=== PATIENT | female | born 1940 | race Caucasian/White ===

== ENCOUNTER 2024-05-06 13:58 | Inpatient (IN) | payer MEDICARE, OTHER ==
[~2024-05-06] VITALS: Ht 152.4 cm; Wt 62.2 kg
[2024-05-06] MEDS ORDERED: DIOVAN (14:13)
[2024-05-06] MEDS ORDERED: MOBIC (14:13)
[2024-05-06] MEDS ORDERED: ASA (14:13)
[2024-05-06] MEDS ORDERED: NEURONTIN (14:13)
[2024-05-06] MEDS ORDERED: LEXAPRO (14:13)
[2024-05-06] MEDS ORDERED: LIPITOR (14:13)
[2024-05-06] MEDS ORDERED: COREG (14:13)
[2024-05-06] MEDS: IV NORMAL SALINE 1000 ML BAG IV ONE (15:00)
[2024-05-06 16:09] LABS: CALCIUM 8.5 mg/dL (8.5-10.1); CARBON DIOXIDE 26 mmol/L (21-32); CHLORIDE 102 mmol/L (98-107); CREATININE 2.4 mg/dL (0.6-1.3); GLUCOSE 199 mg/dL (74-106); POTASSIUM 3.7 mmol/L (3.5-5.1); SODIUM SERUM 141 mmol/L (136-145); UREA NITROGEN, BLOOD 32 mg/dL (7-18)
[2024-05-06 16:10] LABS: MAGNESIUM 1.3 mg/dL (1.8-2.4)
[2024-05-06 16:17] LABS: HEMATOCRIT 34.9 % (31.2-41.9); HEMOGLOBIN 11.6 g/dL (10.9-14.3); LYMPHOCYTES # (AUTO) 0.3 K/uL (0.8-4.8); LYMPHOCYTES % (AUTO) 1.7 % (20.5-51.5); MEAN CORPUSCULAR HEMOGLOBIN 28.8 uug (24.7-32.8); MEAN CORPUSCULAR HGB CONC 33 g/dL (32.3-35.6); MEAN CORPUSCULAR VOLUME 86.4 fL (75.5-95.3); MONOCYTES # (AUTO) 0.8 K/uL (0.1-1.30); MONOCYTES % (AUTO) 4.2 % (0.0-11.0); NEUTROPHILS % (AUTO) 94.1 % (38.5-71.5); PLATELET COUNT (AUTO) 129 K/uL (179-408); RED BLOOD CELL COUNT(AUTO) 4.03 MIL/uL (3.63-4.92); RED CELL DISTRIBUTION WIDTH 13.7 % (12.3-17.7); WHITE BLOOD COUNT (AUTO) 20.2 K/uL (3.8-11.8)
[2024-05-06 16:18] LABS: ALANINE AMINOTRANSFERASE 21 U/L (14-59); ALBUMIN 2.8 g/dL (3.4-5.0); ALKALINE PHOSPHATASE 57 U/L (50-136); ASPARTATE AMINOTRANSFERASE 18 U/L (15-37); BILIRUBIN,DIRECT 0.2 mg/dL (0.0-0.2); BILIRUBIN,TOTAL 0.8 mg/dL (0.2-1.0); TOTAL PROTEIN, SERUM 6.3 g/dL (6.4-8.2)
[2024-05-06 16:19] LABS: DIFFERENTIAL COMMENT 1
[2024-05-06] MEDS ORDERED: MAGNESIUM SULFATE 1 GM/2 ML VIAL ONE (16:53)
[2024-05-06] MEDS ORDERED: MAGNESIUM SULFATE/D5W 100 ML ONE ×2 (16:54→18:19)
[2024-05-06] MEDS: MAGNESIUM SULFATE/D5W 100 ML IV SCH (17:04)
[2024-05-06] MEDS: IV NS 1000 ML 1,000 ML IV ONE (18:12)
[2024-05-06] MEDS ORDERED: CEFTRIAXONE /D5W 50ML IVPB **ER PYXIS IV ONE (18:13)
[2024-05-06 18:15] LABS: *BILIRUBIN,URIN 1+ (NEGATIVE); *BLOOD, URINE 2+ (NEGATIVE); *CLARITY,URINE CLEAR (CLEAR); *COLOR,URINE YELLOW (YELLOW); *KETONES,URINE NEGATIVE (NEGATIVE); *PROTEIN,URINE 1+ (NEGATIVE); *UROBILINOGEN,URINE 0.2 E.U./dl (NORMAL); LEUKOCYTE ESTERASE ,URINE 1+ (NEGATIVE); NITRITE, URINE NEGATIVE (NEGATIVE); UGLUCOSE NEGATIVE (NEGATIVE)
[2024-05-06] MEDS: CEFTRIAXONE 1 G in IV DEXTROSE 5% 50 ML IV ONE (18:19)
[2024-05-06 18:55] LABS: BACTERIA,URINE MODERATE /HPF (NONE SEEN); SQUAMOUS EPITHELIAL CELL,UR MODERATE /HPF (NONE SEEN)
[2024-05-06] MEDS ORDERED: CEFD300C3 PO (19:06)
[2024-05-06] MEDS ORDERED: ACETAMINOPHEN 650 MG SUPP.RECT RC PRN (22:15)
[2024-05-06] MEDS ORDERED: MORPHINE SULFATE 2 MG/1 ML DISP.SYRIN IV PRN (22:15)
[2024-05-06] MEDS ORDERED: DEXTROSE 50% 50 ML DISP.SYRIN IV PRN (22:15)
[2024-05-06] MEDS ORDERED: ONDANSETRON 4 MG/2 ML VIAL IV PRN (22:15)
[2024-05-06] MEDS ORDERED: PIPERACILLIN/TAZO 2.25 GM VIAL ONE (23:40)
[2024-05-06] MEDS ORDERED: VANCOMYCIN HCL 500 MG VIAL ONE (23:41)
[2024-05-07] MEDS: BLOOD SUGAR DIAGNOSTIC 1 EACH STRIP VI SCH ×2 (00:07→16:38)
[2024-05-07] MEDS: PIPERACILLIN/TAZO 2.25 G in IV DEXTROSE 5% 50 ML IV SCH ×2 (00:08→12:17)
[2024-05-07] MEDS: INSULIN REGULAR, HUMAN 1000 UNIT/10 ML VIAL SQ PRN ×2 (00:30→16:41)
[2024-05-07] MEDS: VANCOMYCIN HCL 750 MG in IV DEXTROSE 5% 250 ML IV ONE (00:41)
[2024-05-07 06:24] LABS: ABG BASE EXCESS -0.6 mmol/L (-2.0-3.0); ABG HCO3 23.1 mmol/L (21.0-28.0); ABG PCO2 34.5 mmHg (32.0-45.0); ABG PH 7.443 (7.350-7.450); ABG PO2 69.1 mmHg (83.0-108.0); ABG SITE RIGHT RADIAL; AaDO2 94.6 mmHg; COHb 0.3 % (0.5-1.5); MetHb 0.3 % (0.0-1.5); O2Hb 93.6 % (94.0-98.0)
[2024-05-07 06:55] LABS: BASOPHILS % (AUTO) 0.3 % (0.0-2.0); HEMATOCRIT 30.9 % (31.2-41.9); HEMOGLOBIN 10.7 g/dL (10.9-14.3); LYMPHOCYTES # (AUTO) 0.8 K/uL (0.8-4.8); LYMPHOCYTES % (AUTO) 4.6 % (20.5-51.5); MEAN CORPUSCULAR HEMOGLOBIN 29.8 uug (24.7-32.8); MEAN CORPUSCULAR HGB CONC 35 g/dL (32.3-35.6); MEAN CORPUSCULAR VOLUME 85.8 fL (75.5-95.3); MONOCYTES # (AUTO) 0.5 K/uL (0.1-1.30); NEUTROPHILS # (AUTO) 15.4 K/uL (1.8-8.9); NEUTROPHILS % (AUTO) 92.1 % (38.5-71.5); PLATELET COUNT (AUTO) 112 K/uL (179-408); RED CELL DISTRIBUTION WIDTH 14.1 % (12.3-17.7); WHITE BLOOD COUNT (AUTO) 16.7 K/uL (3.8-11.8)
[2024-05-07 07:12] LABS: IRON, SERUM 5 ug/dL (50-175)
[2024-05-07 07:15] LABS: ALANINE AMINOTRANSFERASE 20 U/L (14-59); ALBUMIN 2.4 g/dL (3.4-5.0); ALKALINE PHOSPHATASE 68 U/L (50-136); ASPARTATE AMINOTRANSFERASE 21 U/L (15-37); BILIRUBIN,TOTAL 0.8 mg/dL (0.2-1.0); CALCIUM 7.5 mg/dL (8.5-10.1); CARBON DIOXIDE 26 mmol/L (21-32); CHLORIDE 100 mmol/L (98-107); CHOLESTEROL 117 mg/dL (<200); CREATININE 1.4 mg/dL (0.6-1.3); GLUCOSE 116 mg/dL (74-106); HDL CHOLESTEROL 60 mg/dL (40-60); MAGNESIUM 2.5 mg/dL (1.8-2.4); PHOSPHOROUS 2.9 mg/dL (2.5-4.9); SODIUM SERUM 134 mmol/L (136-145); TOTAL PROTEIN, SERUM 5.6 g/dL (6.4-8.2); TRIGLYCERIDES 84 MG/DL (30-150); UREA NITROGEN, BLOOD 28 mg/dL (7-18)
[2024-05-07 07:18] LABS: POTASSIUM 2.8 mmol/L (3.5-5.1)
[2024-05-07 07:51] LABS: DIFFERENTIAL COMMENT 1
[2024-05-07 07:56] VITALS: BP 123/43; TEMP 97.8; O2SAT 91
[2024-05-07] MEDS: PANTOPRAZOLE SODIUM 40 MG VIAL IV SCH (08:25)
[2024-05-07] MEDS: POTASSIUM CHLORIDE 50 ML IV SCH (08:30)
[2024-05-07 09:10] VITALS: O2SAT 97
[2024-05-07] MEDS: POTASSIUM CHLORIDE 20 MEQ in IV D5/ 0.9% NACL 1,000 ML IV PRN (09:36)
[2024-05-07] MEDS ORDERED: ATOR20TA PO (10:33)
[2024-05-07] MEDS ORDERED: POTA-10 PO (10:33)
[2024-05-07] MEDS ORDERED: DORZ10DR11 EACHEYE (10:33)
[2024-05-07] MEDS ORDERED: CARV6.252 PO (10:33)
[2024-05-07] MEDS ORDERED: ESCI5TAB PO (10:33)
[2024-05-07] MEDS ORDERED: AMLO-212 PO (10:33)
[2024-05-07] MEDS ORDERED: FAMO20TA8 PO (10:33)
[2024-05-07] MEDS ORDERED: BROM3DRO EACHEYE (10:33)
[2024-05-07] MEDS ORDERED: ICOS1CAP PO (10:33)
[2024-05-07] MEDS ORDERED: GABA-532 PO (10:33)
[2024-05-07] MEDS ORDERED: LINA1TAB PO (10:33)
[2024-05-07] MEDS ORDERED: ESTR0.5T PO (10:33)
[2024-05-07] MEDS ORDERED: DONE10TA44 PO (10:33)
[2024-05-07] MEDS ORDERED: MELO7.5T12 PO (10:36)
[2024-05-07] MEDS ORDERED: VALS1TAB7 PO (10:37)
[2024-05-07 10:41] LABS: THYROID STIMULATING HORMONE 0.964 mIU/mL (0.358-3.740)
[2024-05-07 12:00] VITALS: BP 129/50; TEMP 99.1; O2SAT 96
[2024-05-07] MEDS ORDERED: DEXTROSE 50% 50 ML DISP.SYRIN IV PRN (15:15)
[2024-05-07 16:04] VITALS: BP 90/45; TEMP 97.6; O2SAT 99
[2024-05-07] MEDS ORDERED: FAMOTIDINE 20 MG TABLET PO SCH (17:00)
[2024-05-07] MEDS ORDERED: Medication Not On Formulary EA (Icosapent Ethyl (Vascepa) 2 GM) PO SCH (17:00)
[2024-05-07] MEDS: ESCITALOPRAM OXALATE 10 MG TABLET PO SCH (17:20)
[2024-05-07] MEDS: DORZOLAMIDE/TIMOLOL OPHT DROP 10 ML BOTTLE EACHEYE SCH (17:20)
[2024-05-07] MEDS: ESTRADIOL 1 MG TABLET PO SCH (17:21)
[2024-05-07] MEDS: [UNRECOGNIZED DRUG - OTHER] PO SCH (17:22)
[2024-05-07] MEDS: [UNRECOGNIZED DRUG - OTHER] EACHEYE SCH (17:52)
[2024-05-07] MEDS: BROMFENAC EACHEYE SCH (17:52)
[2024-05-07] MEDS: SOD FERRIC GLUC COMPLX/SUCROSE 125 MG in IV NORMAL SALINE 100 ML IV SCH (18:13)
[2024-05-07 19:35] VITALS: BP 105/51; TEMP 98.8; O2SAT 92
[2024-05-07] MEDS: GABAPENTIN 100 MG CAPSULE PO SCH (20:38)
[2024-05-07] MEDS: ATORVASTATIN 20 MG TABLET PO SCH (20:38)
[2024-05-08] VITALS (8 sets, daily range): BP systolic 108–161; BP diastolic 49–60; TEMP 97.6–98.3; O2SAT 93–96
[2024-05-08 07:01] LABS: CALCIUM 7.5 mg/dL (8.5-10.1); CARBON DIOXIDE 24 mmol/L (21-32); CHLORIDE 109 mmol/L (98-107); GLUCOSE 153 mg/dL (74-106); MAGNESIUM 2.4 mg/dL (1.8-2.4); POTASSIUM 3.4 mmol/L (3.5-5.1); SODIUM SERUM 141 mmol/L (136-145); UREA NITROGEN, BLOOD 18 mg/dL (7-18)
[2024-05-08 07:02] LABS: BASOPHILS # (AUTO) 0.1 K/UL (0.0-0.2); BASOPHILS % (AUTO) 0.3 % (0.0-2.0); EOSINOPHILS # (AUTO) 0.1 K/uL (0.0-0.7); EOSINOPHILS % (AUTO) 0.6 % (0.0-7.0); HEMATOCRIT 30.4 % (31.2-41.9); HEMOGLOBIN 10.4 g/dL (10.9-14.3); LYMPHOCYTES # (AUTO) 0.9 K/uL (0.8-4.8); LYMPHOCYTES % (AUTO) 5.8 % (20.5-51.5); MEAN CORPUSCULAR HEMOGLOBIN 29.5 uug (24.7-32.8); MEAN CORPUSCULAR HGB CONC 34 g/dL (32.3-35.6); MEAN CORPUSCULAR VOLUME 86.3 fL (75.5-95.3); MONOCYTES # (AUTO) 0.7 K/uL (0.1-1.30); MONOCYTES % (AUTO) 4.2 % (0.0-11.0); NEUTROPHILS % (AUTO) 89.1 % (38.5-71.5); PLATELET COUNT (AUTO) 105 K/uL (179-408); RED BLOOD CELL COUNT(AUTO) 3.53 MIL/uL (3.63-4.92); WHITE BLOOD COUNT (AUTO) 15.7 K/uL (3.8-11.8)
[2024-05-08 07:12] LABS: DIFFERENTIAL COMMENT 1
[2024-05-08] MEDS: DONEPEZIL 10 MG TABLET PO SCH (08:58)
[2024-05-08] MEDS: POTASSIUM CHLORIDE 20 MEQ TAB.PRT.SR PO ONE (08:58)
[2024-05-08] MEDS ORDERED: Medication Not On Formulary EA (Escitalopram Oxalate (Lexapro) 5 MG) PO SCH (09:00)
[2024-05-08] MEDS ORDERED: Medication Not On Formulary EA (Estradiol 0.5 MG) PO SCH (09:00)
[2024-05-08] MEDS: FUROSEMIDE 20 MG/2 ML VIAL IV ONE (10:29)
[2024-05-08] MEDS ORDERED: NEUTRA PHOS PACKET PO ONE (13:00)
[2024-05-08] MEDS: NEUTRA PHOS PACKET PO ONE (13:25)
[2024-05-08] MEDS: TEMAZEPAM 7.5 MG CAPSULE PO PRN (21:27)
[2024-05-08 22:18] LABS: VANCOMYCIN,RANDOM 4.7 ug/mL (20.0-30.0)
[2024-05-09] VITALS (8 sets, daily range): BP systolic 121–143; BP diastolic 47–93; TEMP 98.2–98.9; O2SAT 92–99
[2024-05-09] MEDS: PANTOPRAZOLE SODIUM 40 MG TABLET.DR PO SCH (06:20)
[2024-05-09 06:50] LABS: CARBON DIOXIDE 25 mmol/L (21-32); CHLORIDE 108 mmol/L (98-107); CREATININE 0.9 mg/dL (0.6-1.3); GLUCOSE 105 mg/dL (74-106); MAGNESIUM 2.2 mg/dL (1.8-2.4); PHOSPHOROUS 1.9 mg/dL (2.5-4.9); POTASSIUM 3.3 mmol/L (3.5-5.1); SODIUM SERUM 142 mmol/L (136-145); UREA NITROGEN, BLOOD 13 mg/dL (7-18)
[2024-05-09 07:39] LABS: BASOPHILS # (AUTO) 0.1 K/UL (0.0-0.2); BASOPHILS % (AUTO) 0.6 % (0.0-2.0); EOSINOPHILS # (AUTO) 0.1 K/uL (0.0-0.7); EOSINOPHILS % (AUTO) 1.1 % (0.0-7.0); HEMATOCRIT 30.1 % (31.2-41.9); HEMOGLOBIN 10.2 g/dL (10.9-14.3); LYMPHOCYTES # (AUTO) 1.1 K/uL (0.8-4.8); MEAN CORPUSCULAR HEMOGLOBIN 29.4 uug (24.7-32.8); MEAN CORPUSCULAR HGB CONC 34 g/dL (32.3-35.6); MEAN CORPUSCULAR VOLUME 86.6 fL (75.5-95.3); MONOCYTES # (AUTO) 0.7 K/uL (0.1-1.30); MONOCYTES % (AUTO) 5.6 % (0.0-11.0); NEUTROPHILS # (AUTO) 10.4 K/uL (1.8-8.9); NEUTROPHILS % (AUTO) 83.7 % (38.5-71.5); PLATELET COUNT (AUTO) 124 K/uL (179-408); RED BLOOD CELL COUNT(AUTO) 3.48 MIL/uL (3.63-4.92); WHITE BLOOD COUNT (AUTO) 12.4 K/uL (3.8-11.8)
[2024-05-09] MEDS ORDERED: POTASSIUM CHLORIDE 20 MEQ POWDER PACKET GT ONE (08:15)
[2024-05-09] MEDS: POTASSIUM CHLORIDE 20 MEQ TAB.PRT.SR PO ONE (08:21)
[2024-05-09] MEDS: PIPERACILLIN SODIUM/TAZOBACTAM 3.375 G in IV DEXTROSE 5% 100 ML IV SCH (15:13)
[2024-05-09] MEDS: NEUTRA PHOS PACKET PO ONE (16:45)
[2024-05-10 04:38] VITALS: BP 155/70; TEMP 97.7; O2SAT 92
[2024-05-10 06:48] LABS: BASOPHILS # (AUTO) 0.1 K/UL (0.0-0.2); BASOPHILS % (AUTO) 0.8 % (0.0-2.0); EOSINOPHILS # (AUTO) 0.2 K/uL (0.0-0.7); EOSINOPHILS % (AUTO) 2.6 % (0.0-7.0); HEMATOCRIT 29.8 % (31.2-41.9); HEMOGLOBIN 10.4 g/dL (10.9-14.3); LYMPHOCYTES # (AUTO) 1.1 K/uL (0.8-4.8); LYMPHOCYTES % (AUTO) 15.9 % (20.5-51.5); MEAN CORPUSCULAR HEMOGLOBIN 29.8 uug (24.7-32.8); MEAN CORPUSCULAR HGB CONC 35 g/dL (32.3-35.6); MEAN CORPUSCULAR VOLUME 85.8 fL (75.5-95.3); MONOCYTES # (AUTO) 0.9 K/uL (0.1-1.30); NEUTROPHILS # (AUTO) 4.6 K/uL (1.8-8.9); NEUTROPHILS % (AUTO) 67.7 % (38.5-71.5); PLATELET COUNT (AUTO) 148 K/uL (179-408); RED BLOOD CELL COUNT(AUTO) 3.48 MIL/uL (3.63-4.92); RED CELL DISTRIBUTION WIDTH 13.8 % (12.3-17.7); WHITE BLOOD COUNT (AUTO) 6.8 K/uL (3.8-11.8)
[2024-05-10 07:01] LABS: DIFFERENTIAL COMMENT 1
[2024-05-10 07:03] LABS: CARBON DIOXIDE 26 mmol/L (21-32); CHLORIDE 109 mmol/L (98-107); CREATININE 0.9 mg/dL (0.6-1.3); GLUCOSE 118 mg/dL (74-106); MAGNESIUM 2.1 mg/dL (1.8-2.4); PHOSPHOROUS 1.8 mg/dL (2.5-4.9); POTASSIUM 3.9 mmol/L (3.5-5.1); SODIUM SERUM 140 mmol/L (136-145); UREA NITROGEN, BLOOD 11 mg/dL (7-18)
[2024-05-10] MEDS ORDERED: POTASSIUM PHOSPHATE MM 15 MMOL in IV NORMAL SALINE 250 ML IV ONE (08:00)
[2024-05-10] MEDS: REMEDY ESSENTIAL ZINC PASTE 113 GM TOP SCH (08:54)
[2024-05-10 10:55] VITALS: O2SAT 94
[2024-05-10] MEDS: POTASSIUM PHOSPHATE MM 15 MMOL in IV NORMAL SALINE 250 ML IV ONE (10:55)
[2024-05-10 11:17] VITALS: O2SAT 90
[2024-05-10 11:35] VITALS: BP 144/68; TEMP 98.1; O2SAT 97
[2024-05-10] MEDS ORDERED: AMOX500C2 PO (11:51)
[2024-05-10 12:00] VITALS: O2SAT 96
[2024-05-10 16:14] VITALS: BP 159/60; TEMP 97.5; O2SAT 91
== END 2024-05-10 17:35 | disposition home health service (06) | DRG 871 ==
LOC: ER 13:58 → TELE3 22:28 → MEDSURG3 05-09 09:20
PROVIDERS: ADMIT Internal Medicine; ATTEND Internal Medicine
PROC: 05HB33Z Insertion of Infusion Device into Right Basilic Vein, Percutaneous Approach (ICD-10-PCS; principal; 2024-05-07)
DX: A41.9 Sepsis, unspecified organism (principal); G92.8 Other toxic encephalopathy; N17.0 Acute kidney failure with tubular necrosis; J96.01 Acute respiratory failure with hypoxia; I50.31 Acute diastolic (congestive) heart failure; N13.6 Pyonephrosis; D68.59 Other primary thrombophilia; J98.11 Atelectasis; I31.39 Other pericardial effusion (noninflammatory); I13.0 Hypertensive heart and chronic kidney disease with heart failure and stage 1 through stage 4 chronic kidney disease, or unspecified chronic kidney disease; R65.20 Severe sepsis without septic shock; B96.20 Unspecified Escherichia coli [E. coli] as the cause of diseases classified elsewhere; M15.9 Polyosteoarthritis, unspecified; E78.5 Hyperlipidemia, unspecified; E11.42 Type 2 diabetes mellitus with diabetic polyneuropathy; I70.0 Atherosclerosis of aorta; R11.2 Nausea with vomiting, unspecified; R41.89 Other symptoms and signs involving cognitive functions and awareness; E11.22 Type 2 diabetes mellitus with diabetic chronic kidney disease; N18.9 Chronic kidney disease, unspecified; Z74.09 Other reduced mobility; Z79.1 Long term (current) use of non-steroidal anti-inflammatories (NSAID); Z91.041 Radiographic dye allergy status; Z90.710 Acquired absence of both cervix and uterus; Z86.16 Personal history of COVID-19; Z86.59 Personal history of other mental and behavioral disorders; Z79.84 Long term (current) use of oral hypoglycemic drugs
CPT/HCPCS: 36415; 36600; 70450; 71045; 71250; 82803; 83550; 83690; 83735; 84100; 84443; 84484; 85025; 85610; 93307; A4606; A4663; G0378; J0696; J1815; J1940; J2470; J2543; J2916; J3370; J3475; J3480; J3490; J7040; J7042; J7050